=== PATIENT | female | born 2000 | race Caucasian/White ===

== ENCOUNTER 2022-04-06 17:58 | Inpatient (IN) ==
--- NOTE | 2022-04-06 18:22 | Emergency Department Note ---
Impression & Plan Suicidal ideation, Mood disorder, Paranoid ED Provider Note NAME: LYUBOV STEWART AGE: 22 SEX: F : 2000 ARRIVES VIA: Law Enforcement Transport INFORMANT: Patient, Police ED PROVIDER(S): Miller Jaime DO CHIEF COMPLAINT: Mental health evaluation HPI: Patient is a 22-year-old female who is a [employer] student who presents to the ER brought in by police. They note that she has been found to various places including [employer] and she has going through various different things including trash. They note that she is very paranoid. She was brought to [facility] and the police took her home. They later found her 2 hours later walking through the [place] and she had no idea where she was or why she was there. She was knocking on doors looking for the [employer] per their report as well. She denies any suicidal or homicidal ideations. No auditory or visual hallucinations. She notes that where things have been happening to her and she shows me a picture in the trash and asked me to explain this the note. She also notes that while walking through one of the buildings people were changing the wall as well as the wallpaper trying to confuse her. PAST MEDICAL HISTORY:See Below PAST SURGICAL HISTORY:See Below FAMILY HISTORY:See Below SOCIAL HISTORY:See Below HOME MEDICATIONS:See Below ALLERGIES:See Below VITALS:See Below PHYSICAL EXAMINATION: GENERAL: Sitting up in bed, alert, well appearing, well nourished, no distress, non-toxic EYE EXAM: normal conjunctiva. OROPHARYNX: no exudate, no erythema, lips, buccal mucosa, and tongue normal and mucous membranes are moist NECK: supple, no nuchal rigidity, no adenopathy, non-tender LUNGS: Clear to auscultation. Normal chest wall mechanics HEART: no murmurs, S1 normal and S2 normal ABDOMEN: abdomen soft, non-tender, normo-active bowel sounds, no masses, no rebound or guarding. BACK: Back is symmetrical on inspection and there is no deformity, no midline tenderness, no CVA tenderness. SKIN: no rashes and no bruising UPPER EXTREMITIES: upper extremities are grossly normal. LOWER EXTREMITIES: No pitting edema. NEURO EXAM: Normal sensorium, cranial nerves II-XII grossly intact, normal speech, no gross weakness of arms, no gross weakness of legs. PSYCH: Patient denies any suicidal or homicidal ideations. Appears very anxious and is clearly paranoid. MEDICAL DECISION MAKING: Patient is a 22-year-old female brought in by police on a 302 petition. Patient has been paranoid and delusional and was consequently brought in. Blood work was obtained and showed no significant leukocytosis or anemia. BMP with mild hypokalemia 3.1. T bili slightly elevated at 1.5 patient denies any belly pain. No transaminitis. TSH unremarkable. UA was contaminated. No urinary symptoms and will not treat. was negative. Tox was positive for marijuana. COVID-negative. Alcohol negative. Patient expressed to Lynn that she is having suicidal ideations and she is very impulsive. She does not have a plan but notes that she would her self without having a clear plan as she is spontaneous. She has had suicide attempt previously. She is clearly paranoid when she was walking through the [place] during the freezing rain storm and did not know where she was and what she was doing there. She is exploring various different sites and she is not clear of what she is looking for but knows that she has to go to various different places. She has no other complaints at this time. Through 2 was signed if she do not want to stay. Do favor she is a danger to herself. She was seen by 3 S. admit for further work-up OBSERVATION:The patient was placed in observation status at 1800. Medical clearance, psychiatric evaluation and placement. During the time in observation, the patient was frequently reassessed and received close monitoring. On Final reassessment the patient labs were stable and the patient will be disposition at this time. A total observation time of 7 hours and patient was admitted to 3 S. Triage Nursing notes reviewed. Limited review of prior medical records performed Vital Signs: reviewed and remarkable for no significant abnormalities Differential diagnosis: Mood disorder, infection, hypoglycemia, electrolyte abnormalities, cardiac sources, intracerebral event, toxicologic, trauma, neurologic, as well as other pathologies. ER treatment provided: See below Diagnostics interpreted by me include EKG and cardiac monitoring as listed below: -Laboratory studies:Interpreted by me as stated above in MDM and shown below. Imaging studies: Xrays: As interpreted by me:none CTs show: none Consultation(s): As described in MDM Procedures:none Critical Care: None Past Med/Surg History Medical History (Updated 04/07/22 @ 00:47 by Miller Jaime DO) No significant past medical history Surgical History No history of previous surgery Social History Smoking Status: Former smoker Tobacco Type: E-cigarettes / Vaping Preferred Language: Pashto Feels Safe at Home: Hesitant to Answer Gender Identity: Female Allergies Allergies Allergy/AdvReac Type Severity Reaction Status Date / Time No Known Allergies Allergy Verified 12/19/20 15:00 Home Meds Home Medications Medication Instructions Recorded Confirmed escitalopram oxalate 10 mg tablet 10 mg PO DAILY 12/19/20 12/19/20 Results & Data (ED) Vital Signs Vital Signs - 24 hr 04/06/22 18:42 04/06/22 19:40 Temperature 37.0 C Temperature Source Oral Pulse Rate [Left Finger] 82 Respiratory Rate 18 Respiratory Depth Normal Blood Pressure [Left Arm] 99/76 L Blood Pressure Mean [Left Arm] 83 Pulse Oximetry 98 Oxygen Delivery Method Room Air Sepsis Recent Fever Within 48 Hours No Sepsis New/Unexplained Change in Mental Status N/A Sepsis Action Taken by Nursing No Action Required Laboratory Data 04/06/22 19:00 04/06/22 19:00 Lab Results 04/06/22 04/06/22 04/06/22 Range/Units 19:00 19:00 19:00 WBC 5.75 (4.8-10.8) K/ul RBC 4.72 (3.93-5.22) M/uL Hgb 14.8 (12.0-16.0) g/dl Hct 41.9 (34.1-44.9) % MCV 88.8 (80.0-100.0) fL MCH 31.4 (25.0-34.0) pg MCHC 35.3 (32.0-36.0) g/dL RDW Std Deviation 38.5 (36.4-46.3) fL RDW Coeff of Apollo 11.9 (11.5-14.5) % Plt Count 302 (130-400) K/uL MPV 9.3 L (9.4-12.3) fL Immature Gran % (Auto) 0.2 % Neut % (Auto) 53.0 % Lymph % (Auto) 36.2 % [place] % (Auto) 9.2 % Eos % (Auto) 0.7 % Baso % (Auto) 0.7 % Neut # (Auto) 3.05 (1.4-6.5) K/uL Lymph # (Auto) 2.08 (1.2-3.4) K/uL [place] # (Auto) 0.53 (0.24-0.82) K/uL Eos # (Auto) 0.04 (0-0.50) K/uL Baso # (Auto) 0.04 (0-0.2) K/uL Immature Gran # (Auto) 0.01 (0.00-0.02) K/uL Sodium 139 (136-145) mmol/L Potassium 3.1 L (3.5-5.1) mmol/L Chloride 101 (98-107) mmol/L Carbon Dioxide 26 (21-32) mmol/L Anion Gap 12 H (3-11) BUN 16 (6-23) mg/dl Creatinine 0.82 (0.6-1.2) mg/dl Est Cr Clr Drug Dosing Not Reportable Est GFR ( Amer) 116.1 ml/min Est GFR (Non-Af Amer) 100.2 ml/min BUN/Creatinine Ratio 19.5 (10-20) Glucose 89 (70-99(Fasting)) mg/dl Calcium 10.6 H (8.5-10.1) mg/dl Total Bilirubin 1.5 H (0.2-1.0) mg/dl AST 48 H (13-39) U/L ALT 24 (7-52) U/L Alkaline Phosphatase 53 (34-104) U/L Total Protein 8.8 H (6.0-8.3) gm/dl Albumin 5.6 H (3.4-5.0) gm/dl Globulin 3.2 (2.5-4.0) gm/dl Albumin/Globulin Ratio 1.8 (0.9-2) TSH 0.503 (0.300-4.500) uIu/ml Urine Color Urine Appearance (Clear) Urine pH (4.5-7.5) Ur Specific [place] (1.000-1.030) Urine Protein (Negative) Urine Glucose (UA) (Negative) Urine Ketones (Negative) Urine Blood (Negative) Urine Nitrite (Negative) Urine Bilirubin (Negative) Urine Urobilinogen (Negative) Ur Leukocyte Esterase (Negative) Urine WBC (Auto) (0-5) /hpf Urine RBC (Auto) (0-4) /hpf U Hyaline Cast (Auto) (0-5) /lpf U Epithel Cells (Auto) (0-5) /lpf Urine Bacteria (Auto) (Negative) Urine Crystals Calcium Oxalate Crystal (None Prsent) Urine Test (Negative) Urine Opiates Screen (Neg) Ur Methadone, Qual (Neg) Urine Barbiturates (Neg) Ur Phencyclidine (PCP) (Neg) U Amphetamin/Meth Scrn (Neg) MDMA (Ecstasy) Screen (Neg) U Benzodiazepines Scrn (Neg) Ur Cocaine Metabolite (Neg) U Marijuana (THC) Screen (Neg) Ethyl Alcohol mg/dL (<10.0) mg/dl SARS-CoV-2, RNA, NAAT (NEGATIVE) 04/06/22 04/06/22 04/06/22 Range/Units 19:00 19:00 19:00 WBC (4.8-10.8) K/ul RBC (3.93-5.22) M/uL Hgb (12.0-16.0) g/dl Hct (34.1-44.9) % MCV (80.0-100.0) fL MCH (25.0-34.0) pg MCHC (32.0-36.0) g/dL RDW Std Deviation (36.4-46.3) fL RDW Coeff of Apollo (11.5-14.5) % Plt Count (130-400) K/uL MPV (9.4-12.3) fL Immature Gran % (Auto) % Neut % (Auto) % Lymph % (Auto) % [place] % (Auto) % Eos % (Auto) % Baso % (Auto) % Neut # (Auto) (1.4-6.5) K/uL Lymph # (Auto) (1.2-3.4) K/uL [place] # (Auto) (0.24-0.82) K/uL Eos # (Auto) (0-0.50) K/uL Baso # (Auto) (0-0.2) K/uL Immature Gran # (Auto) (0.00-0.02) K/uL Sodium (136-145) mmol/L Potassium (3.5-5.1) mmol/L Chloride (98-107) mmol/L Carbon Dioxide (21-32) mmol/L Anion Gap (3-11) BUN (6-23) mg/dl Creatinine (0.6-1.2) mg/dl Est Cr Clr Drug Dosing Est GFR ( Amer) ml/min Est GFR (Non-Af Amer) ml/min BUN/Creatinine Ratio (10-20) Glucose (70-99(Fasting)) mg/dl Calcium (8.5-10.1) mg/dl Total Bilirubin (0.2-1.0) mg/dl AST (13-39) U/L ALT (7-52) U/L Alkaline Phosphatase (34-104) U/L Total Protein (6.0-8.3) gm/dl Albumin (3.4-5.0) gm/dl Globulin (2.5-4.0) gm/dl Albumin/Globulin Ratio (0.9-2) TSH (0.300-4.500) uIu/ml Urine Color Dark Yellow Urine Appearance Cloudy A (Clear) Urine pH 6.0 (4.5-7.5) Ur Specific [place] 1.038 H (1.000-1.030) Urine Protein 1+ H (Negative) Urine Glucose (UA) Negative (Negative) Urine Ketones 2+ H (Negative) Urine Blood Negative (Negative) Urine Nitrite Negative (Negative) Urine Bilirubin Negative (Negative) Urine Urobilinogen Negative (Negative) Ur Leukocyte Esterase Negative (Negative) Urine WBC (Auto) 5-10 H (0-5) /hpf Urine RBC (Auto) 0-4 (0-4) /hpf U Hyaline Cast (Auto) 10-30 H (0-5) /lpf U Epithel Cells (Auto) >30 H (0-5) /lpf Urine Bacteria (Auto) 2+ H (Negative) Urine Crystals Not Reportable Calcium Oxalate Crystal Present A (None Prsent) Urine Test Negative (Negative) Urine Opiates Screen (Neg) Ur Methadone, Qual (Neg) Urine Barbiturates (Neg) Ur Phencyclidine (PCP) (Neg) U Amphetamin/Meth Scrn (Neg) MDMA (Ecstasy) Screen (Neg) U Benzodiazepines Scrn (Neg) Ur Cocaine Metabolite (Neg) U Marijuana (THC) Screen (Neg) Ethyl Alcohol mg/dL < 10.0 (<10.0) mg/dl SARS-CoV-2, RNA, NAAT (NEGATIVE) 04/06/22 04/06/22 Range/Units 19:19 Unknown WBC (4.8-10.8) K/ul RBC (3.93-5.22) M/uL Hgb (12.0-16.0) g/dl Hct (34.1-44.9) % MCV (80.0-100.0) fL MCH (25.0-34.0) pg MCHC (32.0-36.0) g/dL RDW Std Deviation (36.4-46.3) fL RDW Coeff of Apollo (11.5-14.5) % Plt Count (130-400) K/uL MPV (9.4-12.3) fL Immature Gran % (Auto) % Neut % (Auto) % Lymph % (Auto) % [place] % (Auto) % Eos % (Auto) % Baso % (Auto) % Neut # (Auto) (1.4-6.5) K/uL Lymph # (Auto) (1.2-3.4) K/uL [place] # (Auto) (0.24-0.82) K/uL Eos # (Auto) (0-0.50) K/uL Baso # (Auto) (0-0.2) K/uL Immature Gran # (Auto) (0.00-0.02) K/uL Sodium (136-145) mmol/L Potassium (3.5-5.1) mmol/L Chloride (98-107) mmol/L Carbon Dioxide (21-32) mmol/L Anion Gap (3-11) BUN (6-23) mg/dl Creatinine (0.6-1.2) mg/dl Est Cr Clr Drug Dosing Est GFR ( Amer) ml/min Est GFR (Non-Af Amer) ml/min BUN/Creatinine Ratio (10-20) Glucose (70-99(Fasting)) mg/dl Calcium (8.5-10.1) mg/dl Total Bilirubin (0.2-1.0) mg/dl AST (13-39) U/L ALT (7-52) U/L Alkaline Phosphatase (34-104) U/L Total Protein (6.0-8.3) gm/dl Albumin (3.4-5.0) gm/dl Globulin (2.5-4.0) gm/dl Albumin/Globulin Ratio (0.9-2) TSH (0.300-4.500) uIu/ml Urine Color Urine Appearance (Clear) Urine pH (4.5-7.5) Ur Specific [place] (1.000-1.030) Urine Protein (Negative) Urine Glucose (UA) (Negative) Urine Ketones (Negative) Urine Blood (Negative) Urine Nitrite (Negative) Urine Bilirubin (Negative) Urine Urobilinogen (Negative) Ur Leukocyte Esterase (Negative) Urine WBC (Auto) (0-5) /hpf Urine RBC (Auto) (0-4) /hpf U Hyaline Cast (Auto) (0-5) /lpf U Epithel Cells (Auto) (0-5) /lpf Urine Bacteria (Auto) (Negative) Urine Crystals Calcium Oxalate Crystal (None Prsent) Urine Test (Negative) Urine Opiates Screen Neg (Neg) Ur Methadone, Qual Neg (Neg) Urine Barbiturates Neg (Neg) Ur Phencyclidine (PCP) Neg (Neg) U Amphetamin/Meth Scrn Neg (Neg) MDMA (Ecstasy) Screen Neg (Neg) U Benzodiazepines Scrn Neg (Neg) Ur Cocaine Metabolite Neg (Neg) U Marijuana (THC) Screen Pos H (Neg) Ethyl Alcohol mg/dL (<10.0) mg/dl SARS-CoV-2, RNA, NAAT NEGATIVE (NEGATIVE) Discharge Plan Visit Data Chief Complaint: Mental Health Evaluation Stated Complaint: MENTAL HEALTH EVAL ED Provider: Miller Jaime Discharge Problem: Suicidal ideation, Mood disorder, Paranoid Forms Stand Alone Forms: My [facility], Suicide Prevention Resources Prescriptions Prescriptions: No Action escitalopram oxalate 10 mg tablet 10 mg PO DAILY Referrals Referrals: PCP,NO [Primary Care Provider] -
[2022-04-06 19:16] LABS: Basophils # (auto) 0.04 K/uL (0-0.2); Basophils % (auto) 0.7 %; Eosinophils # (auto) 0.04 K/uL (0-0.50); Eosinophils % (auto) 0.7 %; Hematocrit (blood only) 41.9 % (34.1-44.9); Hemoglobin 14.8 g/dl (12.0-16.0); Immature Granulocytes # (auto) 0.01 K/uL (0.00-0.02); Immature Granulocytes % (auto) 0.2 %; Lymphocytes # (auto) 2.08 K/uL (1.2-3.4); Lymphocytes % (auto) 36.2 %; Mean Corpuscular Hemoglobin 31.4 pg (25.0-34.0); Mean Corpuscular Hgb Conc 35.3 g/dL (32.0-36.0); Mean Corpuscular Volume 88.8 fL (80.0-100.0); Mean Platelet Volume 9.3 fL (9.4-12.3); Monocytes # (auto) 0.53 K/uL (0.24-0.82); Monocytes % (auto) 9.2 %; Neutrophils # (auto) 3.05 K/uL (1.4-6.5); Platelet Count 302 K/uL (130-400); RDW Coefficient of Variation 11.9 % (11.5-14.5); RDW Standard Deviation 38.5 fL (36.4-46.3); Red Blood Count 4.72 M/uL (3.93-5.22); White Blood Count 5.75 K/ul (4.8-10.8)
[2022-04-06 19:19] LABS: Appearance Urine Cloudy (Clear); Bacteria Urine Automated 2+ (Negative); Bilirubin Urine Negative (Negative); Blood Urine Negative (Negative); Color Urine Dark Yellow; Epithelial Cell Urine Auto >30 /lpf (0-5); Glucose Urine UA Negative (Negative); Ketones Urine 2+ (Negative); Leukocyte Esterase Urine Negative (Negative); Nitrite Urine Negative (Negative); Protein Urine 1+ (Negative); RBC Urine Automated 0-4 /hpf (0-4); Specific Gravity Urine 1.038 (1.000-1.030); Urobilinogen Urine Negative (Negative)
[2022-04-06 19:32] LABS: Calcium Oxalate Crystals Urine Present (None Prsent)
[2022-04-06 19:35] LABS: Alanine Aminotransferase 24 U/L (7-52); Albumin Globulin Ratio 1.8 (0.9-2); Albumin Level 5.6 gm/dl (3.4-5.0); Alkaline Phosphatase 53 U/L (34-104); Anion Gap 12 (3-11); Aspartate Aminotransferase 48 U/L (13-39); BUN Creatinine Ratio 19.5 (10-20); Bilirubin,Total 1.5 mg/dl (0.2-1.0); Blood Urea Nitrogen 16 mg/dl (6-23); Calcium 10.6 mg/dl (8.5-10.1); Carbon Dioxide 26 mmol/L (21-32); Chloride 101 mmol/L (98-107); Est GFR (African American) 116.1 ml/min; Est GFR (Non-African American) 100.2 ml/min; Globulin 3.2 gm/dl (2.5-4.0); Glucose 89 mg/dl (70-99(Fasting)); Potassium 3.1 mmol/L (3.5-5.1); Sodium 139 mmol/L (136-145); Total Protein 8.8 gm/dl (6.0-8.3)
[2022-04-06 19:46] LABS: Amphetamines+Metham, Urine Neg (Neg); Barbiturates, Urine Neg (Neg); Benzodiazepine, Urine Neg (Neg); Cocaine, Urine Neg (Neg); MDMA (Ecstacy), Urine Neg (Neg); Methadone, Urine Neg (Neg); Opiate, Urine Neg (Neg); Phencyclidine, Urine Neg (Neg)
[2022-04-06 21:49] LABS: Pregnancy Test, Urine Negative (Negative)
[2022-04-06] MEDS ORDERED: OLANZapine 5 MG TABLET PO PRN (23:59)
[2022-04-07] MEDS ORDERED: ACETAMINOPHEN 325 MG TAB PO PRN (00:06)
[2022-04-07] MEDS ORDERED: BISMUTH SUBSALICYLATE LIQD 236 ML PO PRN (00:06)
[2022-04-07] MEDS ORDERED: MAGNESIUM HYDROXIDE SUSP 30 ML UDC PO PRN (00:06)
[2022-04-07] MEDS ORDERED: ALUMINUM/MAGNESIUM SUSP 30 ML UDC PO PRN (00:06)
[2022-04-07] MEDS ORDERED: hydrOXYzine HCl 25 MG TAB PO PRN ×2 (00:06)
[2022-04-07] MEDS ORDERED: SODIUM CHLORIDE 0.65% NA SOLN 45 ML (OCEAN) PRN ×2 (00:06→00:50)
[2022-04-07] MEDS ORDERED: OLANZapine ZYDIS 5 MG ORALLY DIS. TAB PO PRN (01:28)
[2022-04-07] MEDS ORDERED: LORazepam 1 MG TAB PO PRN (01:30)
[2022-04-07] MEDS ORDERED: OLANZapine 10 MG/2.1 ML SDV IM PRN (10:32)
--- NOTE | 2022-04-07 17:09 | History & Physical ---
Date of Service April 07, 2022 Impression / Recommendations Impression 22 yo female with unspecified psychotic disorder, differential includes substance induced, acute jennifer, or primary thought disorder. Father reportedly had an isolated episode of psychosis in his 20s. Given sleep pattern, presentation, rapid onset, baseline functioning without negative prodrome, no known recent substance abuse (though tox + MJ) suspect bipolar I disorder. (1) Psychotic disorder: Plan The patient was admitted to the [facility] ([facility] mental [facility] unit) on q15 min checks (behavioral with suicide precautions) for safety. The patient w ill participate in group, recreational, and milieu therapies and will be offered additional individual and family sessions as clinically appropriate. She is currently refusing all programming. She did eat breakfast then refuse lunch. Risks/benefits/alternatives reviewed re: Seroquel for mood stabilization as she preferred over Zyprexa (though the latter will be available IM if unable to redirect). Will replete K+, UC no growth on day 1 and patient denied dysuria. 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 Chief Complaint "I don't need to be here, my rights are being violated." History of Present Illness The patient is rather guarded in relating her history, sometime since return to campus she's felt "something was off" and that she was being compelled to follow signs that she felt had significance for her. She asked me to relate the timeline of events yesterday, either to avoid giving information that could be used against her or due to poor memory/disorganization. She apparently had a contact with a crisis service and was found within 2 hours wandering and attempting to break into a woman's home who called police. She mentioned that a sign on a construction building led her to believe that the FBI may be involved but could not elaborate. She repeatedly stated she was leaving the hospital today and was irritable upon redirection. She did indicate that she feels safe at her apartment but that some of her neighbors have been acting strangely and that "this is all external, I am fine. I need to go." She denies hallucinations. She stated that she was trying to remove the molding from the floor in the bathroom of the ED last pm as she was trying to escape. She mentioned that one of the staff must be actors as she was wheeled through the hospital and didn't see a single other patient. The patient's was rather nonspecific regarding her MJ use stating that it couldn't be a problem as she was only using daily at bedtime until break (which would be recent). Denied other substance use other than social alcohol. Of note she had been seen in ED twice within past year for fall and odd reaction to Lexapro. She may have been prescribed Buspar and Vistaril via telepsychiatry ([place] provider) but only used the latter rarely for sleep. She did admit to poor sleep and has only slept 1 hour since arriving to the unit. Again stated "this is all external, I'd rather deal without meds" but did agree to Vistaril and Seroquel, then requested prn and then refused. She is frequently at the nurses station (somewhat restless), hyperverbal. A concerned student called to the unit and reported to nursing that her apartment is "a shambles" and she has torn open outlets exposing wires, ripped off the dry wall and has manuals all over the floor. She almost took a hammer to a sliding glass door and tried to get a cleaning person's badge. See also 302 warrant info: "On 04/05/22 officers were dispatched for a confused female at the [facility] who was not staying there. Officers made contact with Kayla Meraz who said she was looking for her purse. Surveillance footage determined she walked all over the facility and pulled computer wires out of multiple units. On 04/06/22, Kayla was found by officers wandering in an active construction area. She did not have an answer on why she was there or what she was doing. Kayla was taken to [facility] and released. A couple hours later, Kayla walked over a mile in the cold rain without proper attire on. She knocked on a person's house asking for help. She did not know where she was or how she had gotten there. Kayla advised officers she had not eaten all day. Her day's events were all over the place and out of order. When asked why she walked through the baez, she said she was possibly looking for the FBI. Also she saw a road sign that said come this way. Due to these events, this officer believes Kayla to be a danger to herself or others." Past Psychiatric History Current Psychiatric Diagnosis: Depression, Anxiety Outpatient Services: none Previous Psych Admissions: none Do You Have Access To A Gun?: No History of Previous Suicide Attempt: Yes Describe Attempts in the Past: reported trying to cut her neck while intoxicated in Nov 2021 Past Medication Trials: 1 dose Lexapro, unclear if took Buspar, Vistaril Allergies Allergy/AdvReac Type Severity Reaction Status Date / Time No Known Allergies Allergy Verified 12/19/20 15:00 Home Medications Medication Instructions Recorded Confirmed Type escitalopram oxalate 10 mg tablet 10 mg PO DAILY 12/19/20 12/19/20 History Family History Family History of: Doesn't Know Alcohol History Hx of Alcohol Use Over the Past 12 Months: Yes (Unable to give details) Smoking Use Have You Smoked or Used Tobacco Products in the Last 30 Days: No tobacco type: e-cigarettes Smoking Status: Former smoker Smoking packs per day: 0 Substance History Hx of Prescription Med Misuse Over the Past 12 Months: No Hx of Over the Counter Med Misuse Over the Past 12 Months: No Hx of Inhalent Misuse Over the Past 12 Months: No Hx of Organic Substance Use Over the Past 12 Months: Yes (MJ 1 month ago) Hx of Illegal Substances/Street Drug Use Over Past 12 Months: No Problems as a Result of Past Substance Use: None Identified Personal History Living Arrangements: Apartment 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) Employment Status: Student Marital Status: Single Number Of Children: 0 Beliefs That Will Affect Care: None Current Legal Problems: No Hx Legal Problems: No Hx Traumatic Life Events: Yes (per patient being hospitalized now) Patient History Medical History (Updated 04/07/22 @ 17:28 by Marguerite Yun MD) No significant past medical history Surgical History No history of previous surgery Social History Smoking Status: Former smoker Tobacco Type: E-cigarettes / Vaping Preferred Language: Azeri Communication Ability: Effective Greaser Helper Required: No Beliefs That Will Affect Care: None Feels Safe at Home: Hesitant to Answer Gender Identity: Female Assistive Devices: None Review of Systems Review of Systems: All systems reviewed & are unremarkable except as noted in HPI & below Physical Exam Psychiatric: Orientation: alert and + guarded; + uncooperative Apperance: appropriately dressed and appropriately groomed Eye Contact: + fair eye contact Motor Behavior: no abnormal motor movements Speech: no pressured speech and + abnormal rate/rhythm/volume of speech (hyperverbal at times) Affect: + labile affect (irritable to laughing inappropriately) Mood: + irritable mood Thought Process: + tangential thought process and + perseveration Thought Content: + paranoid, + delusions and + ideas of reference Suicidal Thoughts: denies suicidal thoughts Homicidal Thoughts: denies homicidal thoughts Hallucinations: no auditory hallucinations and no v isual hallucinations Cognition: attention grossly intact and language grossly intact Estimated Intelligence: consistent with education level Insight: + impaired insight Judgement: + impaired judgement Vital Signs (Past 24 Hours): Last Vital Signs Temp 36.4 C 04/07/22 06:00 Pulse 62 04/07/22 06:00 Resp 18 04/07/22 06:00 BP 122/77 04/07/22 06:00 Pulse Ox 93 04/07/22 06:00 O2 Del Method 04/07/22 06:00 Exam Statement: A physical exam was performed in the ED by Dr. Jaime for the purposes of medical clearance. I accept that physical as correct and adequate for the purposes of the inpatient physical exam. Results & Data ([facility]) Laboratory Results Laboratory Results - last 24 hr 04/06/22 04/06/22 04/06/22 19:00 19:00 19:00 WBC 5.75 RBC 4.72 Hgb 14.8 Hct 41.9 MCV 88.8 MCH 31.4 MCHC 35.3 RDW Std Deviation 38.5 RDW Coeff of Apollo 11.9 Plt Count 302 MPV 9.3 L Immature Gran % (Auto) 0.2 Neut % (Auto) 53.0 Lymph % (Auto) 36.2 Richardson % (Auto) 9.2 Eos % (Auto) 0.7 Baso % (Auto) 0.7 Neut # (Auto) 3.05 Lymph # (Auto) 2.08 Richardson # (Auto) 0.53 Eos # (Auto) 0.04 Baso # (Auto) 0.04 Immature Gran # (Auto) 0.01 Sodium 139 Potassium 3.1 L Chloride 101 Carbon Dioxide 26 Anion Gap 12 H BUN 16 Creatinine 0.82 Est Cr Clr Drug Dosing Not Reportable Est GFR ( Amer) 116.1 Est GFR (Non-Af Amer) 100.2 BUN/Creatinine Ratio 19.5 Glucose 89 Calcium 10.6 H Total Bilirubin 1.5 H AST 48 H ALT 24 Alkaline Phosphatase 53 Total Protein 8.8 H Albumin 5.6 H Globulin 3.2 Albumin/Globulin Ratio 1.8 TSH 0.503 Urine Color Urine Appearance Urine pH Ur Specific [place] Urine Protein Urine Glucose (UA) Urine Ketones Urine Blood Urine Nitrite Urine Bilirubin Urine Urobilinogen Ur Leukocyte Esterase Urine WBC (Auto) Urine RBC (Auto) U Hyaline Cast (Auto) U Epithel Cells (Auto) Urine Bacteria (Auto) Urine Crystals Calcium Oxalate Crystal Urine Test Urine Opiates Screen Ur Methadone, Qual Urine Barbiturates Ur Phencyclidine (PCP) U Amphetamin/Meth Scrn MDMA (Ecstasy) Screen U Benzodiazepines Scrn Ur Cocaine Metabolite U Marijuana (THC) Screen U Marijuana THC Carboxy Drug Screen Comment Ethyl Alcohol mg/dL SARS-CoV-2, RNA, NAAT 04/06/22 04/06/22 04/06/22 19:00 19:00 19:00 WBC RBC Hgb Hct MCV MCH MCHC RDW Std Deviation RDW Coeff of Apollo Plt Count MPV Immature Gran % (Auto) Neut % (Auto) Lymph % (Auto) Richardson % (Auto) Eos % (Auto) Baso % (Auto) Neut # (Auto) Lymph # (Auto) Richardson # (Auto) Eos # (Auto) Baso # (Auto) Immature Gran # (Auto) Sodium Potassium Chloride Carbon Dioxide Anion Gap BUN Creatinine Est Cr Clr Drug Dosing Est GFR ( Amer) Est GFR (Non-Af Amer) BUN/Creatinine Ratio Glucose Calcium Total Bilirubin AST ALT Alkaline Phosphatase Total Protein Albumin Globulin Albumin/Globulin Ratio TSH Urine Color Dark Yellow Urine Appearance Cloudy A Urine pH 6.0 Ur Specific [place] 1.038 H Urine Protein 1+ H Urine Glucose (UA) Negative Urine Ketones 2+ H Urine Blood Negative Urine Nitrite Negative Urine Bilirubin Negative Urine Urobilinogen Negative Ur Leukocyte Esterase Negative Urine WBC (Auto) 5-10 H Urine RBC (Auto) 0-4 U Hyaline Cast (Auto) 10-30 H U Epithel Cells (Auto) >30 H Urine Bacteria (Auto) 2+ H Urine Crystals Not Reportable Calcium Oxalate Crystal Present A Urine Test Negative Urine Opiates Screen Ur Methadone, Qual Urine Barbiturates Ur Phencyclidine (PCP) U Amphetamin/Meth Scrn MDMA (Ecstasy) Screen U Benzodiazepines Scrn Ur Cocaine Metabolite U Marijuana (THC) Screen U Marijuana THC Carboxy Drug Screen Comment Ethyl Alcohol mg/dL < 10.0 SARS-CoV-2, RNA, NAAT 04/06/22 04/06/22 04/06/22 19:19 Unknown Unknown WBC RBC Hgb Hct MCV MCH MCHC RDW Std Deviation RDW Coeff of Apollo Plt Count MPV Immature Gran % (Auto) Neut % (Auto) Lymph % (Auto) Richardson % (Auto) Eos % (Auto) Baso % (Auto) Neut # (Auto) Lymph # (Auto) Richardson # (Auto) Eos # (Auto) Baso # (Auto) Immature Gran # (Auto) Sodium Potassium Chloride Carbon Dioxide Anion Gap BUN Creatinine Est Cr Clr Drug Dosing Est GFR ( Amer) Est GFR (Non-Af Amer) BUN/Creatinine Ratio Glucose Calcium Total Bilirubin AST ALT Alkaline Phosphatase Total Protein Albumin Globulin Albumin/Globulin Ratio TSH Urine Color Urine Appearance Urine pH Ur Specific [place] Urine Protein Urine Glucose (UA) Urine Ketones Urine Blood Urine Nitrite Urine Bilirubin Urine Urobilinogen Ur Leukocyte Esterase Urine WBC (Auto) Urine RBC (Auto) U Hyaline Cast (Auto) U Epithel Cells (Auto) Urine Bacteria (Auto) Urine Crystals Calcium Oxalate Crystal Urine Test Urine Opiates Screen Neg Ur Methadone, Qual Neg Urine Barbiturates Neg Ur Phencyclidine (PCP) Neg U Amphetamin/Meth Scrn Neg MDMA (Ecstasy) Screen Neg U Benzodiazepines Scrn Neg Ur Cocaine Metabolite Neg U Marijuana (THC) Screen Pos H U Marijuana THC Carboxy Pending Drug Screen Comment Pending Ethyl Alcohol mg/dL SARS-CoV-2, RNA, NAAT NEGATIVE Current Inpatient Medications Current Inpatient Medications: Current Inpatient Medications Acetaminophen (Acetaminophen 325 Mg Tab) 650 mg PO Q4H PRN PRN Reason: Headache or Minor Fever Stop: 05/07/22 00:05 Al Hydrox/Mg Hydrox/Simethicone (Aluminum/Magnesium Susp 30 Ml Udc) 30 ml PO Q4H PRN PRN Reason: GI Upset Stop: 05/07/22 00:05 Bismuth Subsalicylate (Bismuth Subsalicylate Liqd 236 Ml) 15 ml PO PRN PRN PRN Reason: Loose Stool Stop: 05/07/22 00:05 Hydroxyzine HCl (Hydroxyzine Hcl 25 Mg Tab) 50 mg PO HSZ PRN PRN Reason: Insomnia Stop: 05/07/22 00:05 Lorazepam (Lorazepam 1 Mg Tab) 1 mg PO Q6 PRN PRN Reason: Anxiety Stop: 05/07/22 01:29 Magnesium Hydroxide (Magnesium Hydroxide Susp 30 Ml Udc) 30 ml PO DAILY PRN PRN Reason: Constipation Stop: 05/07/22 00:05 Olanzapine (Olanzapine 10 Mg/2.1 Ml Sdv) 10 mg IM Q6 PRN PRN Reason: Agitation Stop: 05/07/22 11:59 Quetiapine Fumarate (Quetiapine Fumarate 25 Mg Tablet) 25 mg PO Q4 PRN PRN Reason: Anxiety/Agitation Stop: 05/07/22 11:59 Quetiapine Fumarate (Quetiapine Fumarate 25 Mg Tablet) 50 mg PO HS CAROLA Stop: 05/07/22 21:59 Sodium Chloride (Sodium Chloride 0.65% Na Soln 45 Ml ([place])) 1 - 2 sprays NA PRN PRN PRN Reason: Nasal Dryness/Congestion Stop: 05/07/22 00:05
[2022-04-07] MEDS: QUEtiapine FUMARATE 25 MG TABLET PO SCH (22:39)
--- NOTE | 2022-04-08 11:43 | Psychiatric Progress Note ---
Date of Service April 08, 2022 Impression / Recommendations Impression 22 yo female with unspecified psychotic disorder, differential includes substance induced, acute jennifer, or primary thought disorder. Father reportedly had an isolated episode of psychosis in his 20s. Given sleep pattern, presentation, rapid onset, baseline functioning without negative prodrome, suspect bipolar I disorder but today patient alluded to more frequent substance abuse (presumably MJ). (1) Psychotic disorder: Plan 04/08/22: patient is eating and drinking and remains paranoid about medications, will hold on replete K pending repeat labs in favor of compliance with low dose Seroquel. Refusing additional labs at this time. will need to make a determination about requesting extended commitment tomorrow. 04/07/22: The patient was admitted to the [facility] ([facility] mental health unit) on q15 min checks (behavioral with suicide precautions) for safety. The patient will participate in group, recreational, and milieu therapies and will b e offered additional individual and family sessions as clinically appropriate. She is currently refusing all programming. She did eat breakfast then refuse lunch. Risks/benefits/alternatives reviewed re: Seroquel for mood stabilization as she preferred over Zyprexa (though the latter will be available IM if unable to redirect). Will replete K+, UC no growth on day 1 and patient denied dysuria. 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 Chief Complaint "I don't trust you. I'm fine, it won't happen again." Review of Systems Sleep Information Total Hours of Sleep: 4.75 Meal Information Percent Meal Consumed - Breakfast: 75 Percent Meal Consumed - Lunch: 0 Percent Meal Consumed - Dinner: 75 Subjective Subjective Patient was seen & assessed and interval progress reviewed with nursing and social work. Yesterday patient was highly intrussive and making other patients uncomfortable with her perseveration around rights and inability to distinguish their stay from her involuntary status. She did sleep some overnight and in the am was calmer and able to participate in community meeting. Extensive phone conversation with parents and charge nurse this am about patient's condition with education around [place] mental health statute and criteria for ongoing involunt brady stay and even higher criteria for medications over objection. Reviewed not only hospital visitation and COVID policies but that involuntary patients with elopement risk and lability need accommodations around visiting for safety and so as not to exacerbate their condition and patient verbalized understanding. Mother had previously requested to be present to hold hand at [facility] internal medicine hospitalist time and reiterated that this was outside of even our former visitation policy but that a reasonable accommodation would be for allow phone contact to improve trust/encourage. Parents are highly supportive of medication for her psychosis, discussed differential, answered questions about medications and indications for IM. Parents voiced "total trust" in treatment team and expressed concerns about aftercare and med compliance. They voiced concerns re: even possible discharge after 120 hrs. given the damage in her apartment. They have contacted property management and placed work order for repairs which they will pay for. They have notified law school that she is hospitalized. Patient remains paranoid, misinterpreted again that she was being discharged and became defensive around meds during daily rounds. She alluded to recent substance use but would not elaborate. She admitted to taking a hammer to the wall in her apartment to look for recording or listening devices. She was not amenable to take Seroquel at the time of the interaction but did take with staff support during family meeting later in the afternoon. Physical Exam Psychiatric Orientation: alert and + guarded Apperance: appropriately dressed and appropriately groomed Eye Contact: + fair eye contact Motor Behavior: no abnormal motor movements Speech: normal rate/rhythm/volume of speech Affect: + irritable affect Mood: + irritable mood Thought Process: + circumstantial thought process Thought Content: + paranoid and + delusions Suicidal Thoughts: denies suicidal thoughts Homicidal Thoughts: denies homicidal thoughts Hallucinations: no auditory hallucinations and no visual hallucinations Cognition: language grossly intact Estimated Intelligence: consistent with education level Insight: + impaired insight Judgement: + impaired judgement Vital Signs (Past 24 Hours) Last Vital Signs Temp 36.8 C 04/08/22 06:27 Pulse 83 04/08/22 06:27 Resp 16 04/08/22 06:27 BP 119/82 04/08/22 06:27 Pulse Ox 93 04/07/22 06:00 O2 Del Method 04/07/22 06:00 Results & Data ([facility] [[email or web address] Current Inpatient Medications Current Inpatient Medications: Current Inpatient Medications Acetaminophen (Acetaminophen 325 Mg Tab) 650 mg PO Q4H PRN PRN Reason: Headache or Minor Fever Stop: 05/07/22 00:05 Al Hydrox/Mg Hydrox/Simethicone (Aluminum/Magnesium Susp 30 Ml Udc) 30 ml PO Q4H PRN PRN Reason: GI Upset Stop: 05/07/22 00:05 Bismuth Subsalicylate (Bismuth Subsalicylate Liqd 236 Ml) 15 ml PO PRN PRN PRN Reason: Loose Stool Stop: 05/07/22 00:05 Hydroxyzine HCl (Hydroxyzine Hcl 25 Mg Tab) 50 mg PO HSZ PRN PRN Reason: Insomnia Stop: 05/07/22 00:05 Lorazepam (Lorazepam 1 Mg Tab) 1 mg PO Q6 PRN PRN Reason: Anxiety Stop: 05/07/22 01:29 Magnesium Hydroxide (Magnesium Hydroxide Susp 30 Ml Udc) 30 ml PO DAILY PRN PRN Reason: Constipation Stop: 05/07/22 00:05 Olanzapine (Olanzapine 10 Mg/2.1 Ml Sdv) 10 mg IM Q6 PRN PRN Reason: Agitation Stop: 05/07/22 11:59 Quetiapine Fumarate (Quetiapine Fumarate 25 Mg Tablet) 25 mg PO Q4 PRN PRN Reason: Anxiety/Agitation Stop: 05/07/22 11:59 Quetiapine Fumarate (Quetiapine Fumarate 25 Mg Tablet) 50 mg PO HS CAROLA Stop: 05/07/22 21:59 Last Admin: 04/07/22 22:39 Dose: Not Given Sodium Chloride (Sodium Chloride 0.65% Na Soln 45 Ml ([place])) 1 - 2 sprays NA PRN PRN PRN Reason: Nasal Dryness/Congestion Stop: 05/07/22 00:05 Mental Health & Subst Abuse Tx Therapist Name of Therapist: N/A Bar Waiter/Waitress Name of Bar Waiter/Waitress: N/A
[2022-04-08] MEDS: QUEtiapine FUMARATE 25 MG TABLET PO PRN (14:45)
[2022-04-08] MEDS: QUEtiapine FUMARATE 25 MG TABLET PO SCH (22:22)
[2022-04-09 11:32] LABS: Marijuana Quant, GCMS Urine 85 ng/mL (<5)
--- NOTE | 2022-04-09 16:53 | Psychiatric Progress Note ---
Date of Service April 09, 2022 Impression / Recommendations Impression 22 yo female with unspecified psychotic disorder, differential includes substance induced, acute jennifer, or primary thought disorder. Father reportedly had an isolated episode of psychosis in his 20s. Given sleep pattern, presentation, rapid onset, baseline functioning without negative prodrome, and fairly rapid improvement with sleep, continue to suspect bipolar I disorder. (1) Psychotic disorder: Plan 04/09/22: slept most of the day and was able to participate in a reasonable conversation about current and future plans. In my opinion she does not at this time exhibit behaviors or thought patterns that would meet criteria for extending the commitment. Will continue trial of low-dose quetiapine. 04/08/22: patient is eating and drinking and remains paranoid about medications, will hold on replete K pending repeat labs in favor of compliance with low dose Seroquel. Refusing additional labs at this time. will need to make a determination about requesting extended commitment tomorrow. 04/07/22: The patient was admitted to the [facility] ([facility] mental health unit) on q15 min checks (behavioral with suicide precautions) for safety. The patient will participate in group, recreational, and milieu therapies and will be offered additional individual and family sessions as clinically appropriate. She is currently refusing all programming. She did eat breakfast then refuse lunch. Risks/benefits/alternatives reviewed re: Seroquel for mood stabilization as she preferred over Zyprexa (though the latter will be available IM if unable to redirect). Will replete K+, UC no growth on day 1 and patient denied dysuria. 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 Chief Complaint "[]". Review of Systems Sleep Information Sleep Comments: Slept much of the day Meal Information Percent Meal Consumed - Breakfast: 75 Percent Meal Consumed - Lunch: 100 Percent Meal Consumed - Dinner: 100 Medication Trials Got quetiapine 25 mg yesterday afternoon and 50 mg at bedtime Subjective Subjective Patient was seen & assessed and interval progress reviewed with treatment team Physical Exam Psychiatric Orientation: + guarded Drowsy and slow to wake. Somewhat guarded but more cooperative. Apperance: appropriately dressed and appropriately groomed Eye Contact: + fair eye contact Motor Behavior: no abnormal motor movements Speech: normal rate/rhythm/volume of speech; no pressured speech Affect: + labile affect (wth some tearfulness); no irritable affect Mood: + anxious mood and + irritable mood less circumstantial and tangential, more goal-oriented. Thought Content: + paranoid and + delusions Alludes to the possibility that "the government" may have previously been monitoring her, but rapidly moves on to other topics Suicidal Thoughts: denies suicidal thoughts Homicidal Thoughts: denies homicidal thoughts Hallucinations: no auditory hallucinations and no visual hallucinations Cognition: attention grossly intact and language grossly intact Estimated Intelligence: consistent with education level Insight: + limited insight more able to voice the possibility that her persecutory beliefs were incorrect and to reflect on how her response to them has adversely affected her life Judgement: + limited judgement more able to make appropriate decisions (such as continuing the quetiapine trial) Vital Signs (Past 24 Hours) Last Vital Signs Temp 36.4 C L 04/09/22 06:34 Pulse 96 H 04/09/22 06:34 Resp 16 04/09/22 06:34 BP 113/81 04/09/22 06:34 Pulse Ox 93 04/07/22 06:00 O2 Del Method 04/07/22 06:00 Results & Data ([facility]) Laboratory Results Laboratory Results - last 24 hr 04/06/22 Unknown U Marijuana THC Carboxy 85 H Drug Screen Comment SEE NOTE Current Inpatient Medications Current Inpatient Medications: Current Inpatient Medications Acetaminophen (Acetaminophen 325 Mg Tab) 650 mg PO Q4H PRN PRN Reason: Headache or Minor Fever Stop: 05/07/22 00:05 Al Hydrox/Mg Hydrox/Simethicone (Aluminum/Magnesium Susp 30 Ml Udc) 30 ml PO Q4H PRN PRN Reason: GI Upset Stop: 05/07/22 00:05 Bismuth Subsalicylate (Bismuth Subsalicylate Liqd 236 Ml) 15 ml PO PRN PRN PRN Reason: Loose Stool Stop: 05/07/22 00:05 Hydroxyzine HCl (Hydroxyzine Hcl 25 Mg Tab) 50 mg PO HSZ PRN PRN Reason: Insomnia Stop: 05/07/22 00:05 Lorazepam (Lorazepam 1 Mg Tab) 1 mg PO Q6 PRN PRN Reason: Anxiety Stop: 05/07/22 01:29 Magnesium Hydroxide (Magnesium Hydroxide Susp 30 Ml Udc) 30 ml PO DAILY PRN PRN Reason: Constipation Stop: 05/07/22 00:05 Olanzapine (Olanzapine 10 Mg/2.1 Ml Sdv) 10 mg IM Q6 PRN PRN Reason: Agitation Stop: 05/07/22 11:59 Quetiapine Fumarate (Quetiapine Fumarate 25 Mg Tablet) 25 mg PO Q4 PRN PRN Reason: Anxiety/Agitation Stop: 05/07/22 11:59 Last Admin: 04/08/22 14:45 Dose: 25 mg Quetiapine Fumarate (Quetiapine Fumarate 25 Mg Tablet) 50 mg PO HS CAROLA Stop: 05/07/22 21:59 Last Admin: 04/08/22 22:22 Dose: 50 mg Sodium Chloride (Sodium Chloride 0.65% Na Soln 45 Ml (Leshara)) 1 - 2 sprays NA PRN PRN PRN Reason: Nasal Dryness/Congestion Stop: 05/07/22 00:05 Mental Health & Subst Abuse Tx Psychiatrist Name of Psychiatrist: Charlotte Amador Psychiatrist's Date Of Appointment With Psychiatric Provider: 04/28/22 Time of Appointment with Psychiatrist: 8:30AM Psychiatric Appointment Comment: [address] [place] [address] Therapist Name of Therapist: N/A Duct Maker Name of Duct Maker: N/A Post Discharge Appointments Primary Care Physician Name Of Family Doctor/PCP: [facility] Primary Care Provider Appointment Comment: [facility] Contact Information Discharge Discharge Address: [address] [place] [address]
[2022-04-09] MEDS: QUEtiapine FUMARATE 25 MG TABLET PO SCH (20:00)
[2022-04-10] MEDS: QUEtiapine FUMARATE 25 MG TABLET PO PRN (07:44)
--- NOTE | 2022-04-10 19:47 | Psychiatric Progress Note ---
Date of Service April 10, 2022 Impression / Recommendations Impression 22 yo female with unspecified psychotic disorder, differential includes substance induced, acute jennifer, or primary thought disorder. Showing gradual but consistent improvement, most likely attributable to use of quetiapine. 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 More interest in treatment. (1) Psychotic disorder: Plan 04/10/22: Less guarded with me. Does not voice any persecutory beliefs. Exhibits preoccupation and perseveration about a number of decisions (some important, some less so). She voices an interest in continuing treatment and asks me to reassure her that she won't be made to leave when her commitment expires tomorrow. My saying clearly that this would not happen as long as she agreed to continue treatment did little to reassure her. Has been tolerating quetiaine well with strong evidence of benefit so will continue at the curent dose of 25 mg QAM & 50 mg QHS. 04/09/22: slept most of the day and was able to participate in a reasonable conversation about current and future plans. In my opinion she does not at this time exhibit behaviors or thought patterns that would meet criteria for extending the commitment. Will continue trial of low-dose quetiapine. 04/08/22: patient is eating and drinking and remains paranoid about medications, will hold on replete K pending repeat labs in favor of compliance with low dose Seroquel. Refusing additional labs at this time. will need to make a determination about requesting extended commitment tomorrow. 04/07/22: The patient was admitted to the [facility] ([facility] mental health unit) on q15 min checks (behavioral with suicide precautions) for safety. The patient will participate in group, recreational, and milieu therapies and will be offered additional individual and family sessions as clinically appropriate. She is currently refusing all programming. She did eat breakfast then refuse lunch. Risks/benefits/alternatives reviewed re: Seroquel for mood stabilization as she preferred over Zyprexa (though the latter will be available IM if unable to redirect). Will replete K+, UC no growth on day 1 and patient denied dysuria. 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 Chief Complaint "I'm glad I took that Seroquel". Review of Systems Sleep Information Total Hours of Sleep: 6.5 Sleep Comments: Patient was up several times requesting snacks or speaking with staff. Meal Information Percent Meal Consumed - Breakfast: 0 Percent Meal Consumed - Lunch: 100 Percent Meal Consumed - Dinner: 30 Nutrition Comment: pt. allowed to rest; meal dated, labeled and refrigerated Medication Trials Got quetiapine 25 mg yesterday afternoon and 50 mg at bedtime Subjective Subjective Patient was seen & assessed and interval progress reviewed with treatment team nursing and social work Medication Trials Got quetiapine 25 mg yesterday afternoon and 50 mg at bedtime Physical Exam Psychiatric Orientation: alert and cooperative Apperance: appropriately dressed and appropriately groomed Eye Contact: + fair eye contact Motor Behavior: no abnormal motor movements Speech: normal rate/rhythm/volume of speech; no pressured speech Affect: + anxious affect; no labile affect Mood: + anxious mood; no irritable mood Thought Process: + circumstantial thought process, + tangential thought process and + perseveration Thought Content: + preoccupation and + ideas of reference; no delusions Suicidal Thoughts: denies suicidal thoughts Homicidal Thoughts: denies homicidal thoughts Hallucinations: no auditory hallucinations and no visual hallucinations Cognition: attention grossly intact and language grossly intact Estimated Intelligence: consistent with education level Insight: + limited insight Judgement: + limited judgement Vital Signs (Past 24 Hours) Last Vital Signs Temp 37.0 C 04/10/22 19:28 Pulse 96 H 04/09/22 06:34 Resp 16 04/09/22 06:34 BP 113/81 04/09/22 06:34 Pulse Ox 93 04/07/22 06:00 O2 Del Method 04/07/22 06:00 Results & Data ([facility]) Current Inpatient Medications Current Inpatient Medications: Current Inpatient Medications Acetaminophen (Acetaminophen 325 Mg Tab) 650 mg PO Q4H PRN PRN Reason: Headache or Minor Fever Stop: 05/07/22 00:05 Al Hydrox/Mg Hydrox/Simethicone (Aluminum/Magnesium Susp 30 Ml Udc) 30 ml PO Q4H PRN PRN Reason: GI Upset Stop: 05/07/22 00:05 Bismuth Subsalicylate (Bismuth Subsalicylate Liqd 236 Ml) 15 ml PO PRN PRN PRN Reason: Loose Stool Stop: 05/07/22 00:05 Hydroxyzine HCl (Hydroxyzine Hcl 25 Mg Tab) 50 mg PO HSZ PRN PRN Reason: Insomnia Stop: 05/07/22 00:05 Lorazepam (Lorazepam 1 Mg Tab) 1 mg PO Q6 PRN PRN Reason: Anxiety Stop: 05/07/22 01:29 Magnesium Hydroxide (Magnesium Hydroxide Susp 30 Ml Udc) 30 ml PO DAILY PRN PRN Reason: Constipation Stop: 05/07/22 00:05 Olanzapine (Olanzapine 10 Mg/2.1 Ml Sdv) 10 mg IM Q6 PRN PRN Reason: Agitation Stop: 05/07/22 11:59 Quetiapine Fumarate (Quetiapine Fumarate 25 Mg Tablet) 25 mg PO Q4 PRN PRN Reason: Anxiety/Agitation Stop: 05/07/22 11:59 Last Admin: 04/10/22 07:44 Dose: 25 mg Quetiapine Fumarate (Quetiapine Fumarate 25 Mg Tablet) 50 mg PO HS CAROLA Stop: 05/07/22 21:59 Last Admin: 04/09/22 20:00 Dose: 50 mg Sodium Chloride (Sodium Chloride 0.65% Na Soln 45 Ml (Swift)) 1 - 2 sprays NA PRN PRN PRN Reason: Nasal Dryness/Congestion Stop: 05/07/22 00:05 Mental Health & Subst Abuse Tx Psychiatrist Name of Psychiatrist: Charlotte Amador Psychiatrist's Date Of Appointment With Psychiatric Provider: 04/28/22 Time of Appointment with Psychiatrist: 8:30AM Psychiatric Appointment Comment: [address] [place] [address] Therapist Name of Therapist: Janette Gallegos Date of Therapist Appointment: 04/16/21 Time of Therapist Appointment: 3:30 PM Warranty Coordinator Name of Warranty Coordinator: N/A Post Discharge Appointments Primary Care Physician Name Of Family Doctor/PCP: [facility] Primary Care Provider Appointment Comment: [facility] Contact Information Discharge Discharge Address: [address] [place], [place] [id number]
[2022-04-10] MEDS: QUEtiapine FUMARATE 25 MG TABLET PO SCH (21:02)
[2022-04-11] MEDS: QUEtiapine FUMARATE 25 MG TABLET PO SCH ×2 (12:45→21:12)
--- NOTE | 2022-04-11 18:30 | Psychiatric Progress Note ---
Date of Service April 11, 2022 Impression / Recommendations Impression 04/11/22: Appears to staff and me clearly improving in a number of areas, but pt is hesitant to endorse this. She is certainly not as paranoid and is more focused on real-world issues. She is not certain whether she wants to go to [place] with her parents. Voices hesitation about continuing quetiapine despite recognizing improvement she attributes to it. 22 yo female with unspecified psychotic disorder, differential includes substance induced, acute jennifer, or primary thought disorder. Showing gradual but consistent improvement, most likely attributable to use of quetiapine. 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 More interest in treatment. (1) Psychotic disorder: Plan 04/11/22: Continue low-dose quetiapine. 04/10/22: Less guarded with me. Does not voice any persecutory beliefs. Exhibits preoccupation and perseveration about a number of decisions (some important, some less so). She voices an interest in continuing treatment and asks me to reassure her that she won't be made to leave when her commitment expires tomorrow. My saying clearly that this would not happen as long as she agreed to continue treatment did little to reassure her. Has been tolerating quetiaine well with strong evidence of benefit so will continue at the curent dose of 25 m g QAM & 50 mg QHS. 04/09/22: slept most of the day and was able to participate in a reasonable conversation about current and future plans. In my opinion she does not at this time exhibit behaviors or thought patterns that would meet criteria for extending the commitment. Will continue trial of low-dose quetiapine. 04/08/22: patient is eating and drinking and remains paranoid about medications, will hold on replete K pending repeat labs in favor of compliance with low dose Seroquel. Refusing additional labs at this time. will need to make a determination about requesting extended commitment tomorrow. 04/07/22: The patient was admitted to the [facility] ([place] [facility]) on q15 min checks (behavioral with suicide precautions) for safety. The patient will participate in group, recreational, and milieu therapies and will be offered additional individual and family sessions as clinically appropriate. She is currently refusing all programming. She did eat breakfast then refuse lunch. Risks/benefits/alternatives reviewed re: Seroquel for mood stabilization as she preferred over Zyprexa (though the latter will be available IM if unable to redirect). Will replete K+, UC no growth on day 1 and patient denied dysuria. 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 Chief Complaint "I slept some better". Review of Systems Sleep Information Total Hours of Sleep: 7.25 Sleep Comments: Patient was up several times requesting snacks or speaking with staff. Meal Information Percent Meal Consumed - Breakfast: 100 Percent Meal Consumed - Lunch: 50 Percent Meal Consumed - Dinner: 30 Nutrition Comment: pt. allowed to rest; meal dated, labeled and refrigerated Medication Trials Got quetiapine 25 mg yesterday afternoon and 50 mg at bedtime Subjective Subjective Patient was seen & assessed and interval progress reviewed with treatment team nursing and social work Medication Trials Got quetiapine 25 mg yesterday afternoon and 50 mg at bedtime Physical Exam Psychiatric Orientation: alert, cooperative and + guarded Apperance: appropriately dressed and appropriately groomed Eye Contact: + fair eye contact Motor Behavior: no abnormal motor movements Speech: normal rate/rhythm/volume of speech; no pressured speech Affect: + anxious affect; no labile affect and no irritable affect Mood: + anxious mood; no irritable mood Thought Process: + tangential thought process; thought process not circumstantial Thought Content: + preoccupation and + cognitive distortions; not paranoid, no delusions and no ideas of reference Suicidal Thoughts: denies suicidal thoughts Homicidal Thoughts: denies homicidal thoughts Hallucinations: no auditory hallucinations and no visual hallucinations Cognition: attention grossly intact and language grossly intact Estimated Intelligence: consistent with education level Insight: + limited insight Judgement: + limited judgement Vital Signs (Past 24 Hours) Last Vital Signs Temp 37.0 C 04/10/22 19:28 Pulse 94 H 04/11/22 06:35 Resp 16 04/11/22 06:35 BP 121/78 04/11/22 06:35 Pulse Ox 93 04/07/22 06:00 O2 Del Method 04/07/22 06:00 Results & Data ([facility]) Current Inpatient Medications Current Inpatient Medications: Current Inpatient Medications Acetaminophen (Acetaminophen 325 Mg Tab) 650 mg PO Q4H PRN PRN Reason: Headache or Minor Fever Stop: 05/07/22 00:05 Al Hydrox/Mg Hydrox/Simethicone (Aluminum/Magnesium Susp 30 Ml Udc) 30 ml PO Q4H PRN PRN Reason: GI Upset Stop: 05/07/22 00:05 Bismuth Subsalicylate (Bismuth Subsalicylate Liqd 236 Ml) 15 ml PO PRN PRN PRN Reason: Loose Stool Stop: 05/07/22 00:05 Hydroxyzine HCl (Hydroxyzine Hcl 25 Mg Tab) 50 mg PO HSZ PRN PRN Reason: Insomnia Stop: 05/07/22 00:05 Lorazepam (Lorazepam 1 Mg Tab) 1 mg PO Q6 PRN PRN Reason: Anxiety Stop: 05/07/22 01:29 Magnesium Hydroxide (Magnesium Hydroxide Susp 30 Ml Udc) 30 ml PO DAILY PRN PRN Reason: Constipation Stop: 05/07/22 00:05 Last Admin: 04/11/22 15:05 Dose: 30 ml Olanzapine (Olanzapine 10 Mg/2.1 Ml Sdv) 10 mg IM Q6 PRN PRN Reason: Agitation Stop: 05/07/22 11:59 Quetiapine Fumarate (Quetiapine Fumarate 25 Mg Tablet) 25 mg PO Q4 PRN PRN Reason: Anxiety/Agitation Stop: 05/07/22 11:59 Last Admin: 04/10/22 07:44 Dose: 25 mg Quetiapine Fumarate (Quetiapine Fumarate 25 Mg Tablet) 50 mg PO HS CAROLA Stop: 05/07/22 21:59 Last Admin: 04/10/22 21:02 Dose: 50 mg Quetiapine Fumarate (Quetiapine Fumarate 25 Mg Tablet) 25 mg PO DAILY CAROLA Stop: 05/11/22 12:29 Last Admin: 04/11/22 12:45 Dose: 25 mg Sodium Chloride (Sodium Chloride 0.65% Na Soln 45 Ml ([place])) 1 - 2 sprays NA PRN PRN PRN Reason: Nasal Dryness/Congestion Stop: 05/07/22 00:05 Mental Health & Subst Abuse Tx Psychiatrist Name of Psychiatrist: Charlotte Amador Psychiatrist's Date Of Appointment With Psychiatric Provider: 04/28/22 Time of Appointment with Psychiatrist: 8:30AM Psychiatric Appointment Comment: [facility] [address] [place] [address] Therapist Name of Therapist: Janette Gallegos Date of Therapist Appointment: 04/16/21 Time of Therapist Appointment: 3:30 PM Stationary Engineer Refrigeration Name of Stationary Engineer Refrigeration: N/A Post Discharge Appointments Primary Care Physician Name Of Family Doctor/PCP: [facility] Primary Care Provider Appointment Comment: [facility] [place] [facility] [place] Contact Information Discharge Discharge Address: [address] [place] [address]
[2022-04-12] MEDS: QUEtiapine FUMARATE 25 MG TABLET PO SCH ×2 (09:00→20:55)
--- NOTE | 2022-04-12 11:21 | Psychiatric Progress Note ---
Date of Service April 12, 2022 Impression / Recommendations Impression 04/11/22: Appears to staff and me clearly improving in a number of areas, but pt is hesitant to endorse this. She is certainly not as paranoid and is more focused on real-world issues. She is not certain whether she wants to go to [place] with her parents. Voices hesitation about continuing quetiapine despite recognizing improvement she attributes to it. 22 yo female with unspecified psychotic disorder, differential includes substance induced, acute jennifer, or primary thought disorder. Showing gradual but consistent improvement, most likely attributable to use of quetiapine. 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 More interest in treatment. (1) Psychotic disorder: Plan 04/11/22: Continue low-dose quetiapine. 04/10/22: Less guarded with me. Does not voice any persecutory beliefs. Exhibits preoccupation and perseveration about a number of decisions (some important, some less so). She voices an interest in continuing treatment and asks me to reassure her that she won't be made to leave when her commitment expires tomorrow. My saying clearly that this would not happen as long as she agreed to continue treatment did little to reassure her. Has been tolerating quetiaine well with strong evidence of benefit so will continue at the curent dose of 25 m g QAM & 50 mg QHS. 04/09/22: slept most of the day and was able to participate in a reasonable conversation about current and future plans. In my opinion she does not at this time exhibit behaviors or thought patterns that would meet criteria for extending the commitment. Will continue trial of low-dose quetiapine. 04/08/22: patient is eating and drinking and remains paranoid about medications, will hold on replete K pending repeat labs in favor of compliance with low dose Seroquel. Refusing additional labs at this time. will need to make a determination about requesting extended commitment tomorrow. 04/07/22: The patient was admitted to the [facility] ([facility] mental health unit) on q15 min checks (behavioral with suicide precautions) for safety. The patient will participate in group, recreational, and milieu therapies and will be offered additional individual and family sessions as clinically appropriate. She is currently refusing all programming. She did eat breakfast then refuse lunch. Risks/benefits/alternatives reviewed re: Seroquel for mood stabilization as she preferred over Zyprexa (though the latter will be available IM if unable to redirect). Will replete K+, UC no growth on day 1 and patient denied dysuria. 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 Chief Complaint "[]". Review of Systems Sleep Information Total Hours of Sleep: 8 Sleep Comments: Patient was up several times requesting snacks or speaking with staff. Meal Information Percent Meal Consumed - Breakfast: 50 Percent Meal Consumed - Lunch: 50 Percent Meal Consumed - Dinner: 50 Nutrition Comment: pt. allowed to rest; meal dated, labeled and refrigerated Medication Trials Got quetiapine 25 mg yesterday afternoon and 50 mg at bedtime Subjective Subjective Patient was seen & assessed and interval progress reviewed with [treatment team] [nursing and social work] Medication Trials Got quetiapine 25 mg yesterday afternoon and 50 mg at bedtime Physical Exam Psychiatric Orientation: alert, cooperative and + guarded Apperance: appropriately dressed and appropriately groomed Eye Contact: + fair eye contact Motor Behavior: no abnormal motor movements Speech: normal rate/rhythm/volume of speech; no pressured speech Affect: + anxious affect; no labile affect and no irritable affect Mood: + anxious mood; no irritable mood Thought Process: + tangential thought process and + perseveration; thought process not circumstantial Thought Content: + preoccupation and + cognitive distortions; not paranoid, no delusions and no ideas of reference Suicidal Thoughts: denies suicidal thoughts Homicidal Thoughts: denies homicidal thoughts Hallucinations: no auditory hallucinations and no visual hallucinations Cognition: attention grossly intact and language grossly intact Estimated Intelligence: consistent with education level Insight: + limited insight and + impaired insight Judgement: + limited judgement and + impaired judgement Vital Signs (Past 24 Hours) Last Vital Signs Temp 36.3 C L 04/11/22 19:13 Pulse 88 04/12/22 06:33 Resp 16 04/12/22 06:32 BP 86/54 L 04/12/22 06:33 Pulse Ox 93 04/07/22 06:00 O2 Del Method 04/07/22 06:00 Results & Data ([facility]) Current Inpatient Medications Current Inpatient Medications: Current Inpatient Medications Acetaminophen (Acetaminophen 325 Mg Tab) 650 mg PO Q4H PRN PRN Reason: Headache or Minor Fever Stop: 05/07/22 00:05 Al Hydrox/Mg Hydrox/Simethicone (Aluminum/Magnesium Susp 30 Ml Udc) 30 ml PO Q4H PRN PRN Reason: GI Upset Stop: 05/07/22 00:05 Bismuth Subsalicylate (Bismuth Subsalicylate Liqd 236 Ml) 15 ml PO PRN PRN PRN Reason: Loose Stool Stop: 05/07/22 00:05 Hydroxyzine HCl (Hydroxyzine Hcl 25 Mg Tab) 50 mg PO HSZ PRN PRN Reason: Insomnia Stop: 05/07/22 00:05 Lorazepam (Lorazepam 1 Mg Tab) 1 mg PO Q6 PRN PRN Reason: Anxiety Stop: 05/07/22 01:29 Magnesium Hydroxide (Magnesium Hydroxide Susp 30 Ml Udc) 30 ml PO DAILY PRN PRN Reason: Constipation Stop: 05/07/22 00:05 Last Admin: 04/11/22 15:05 Dose: 30 ml Olanzapine (Olanzapine 10 Mg/2.1 Ml Sdv) 10 mg IM Q6 PRN PRN Reason: Agitation Stop: 05/07/22 11:59 Quetiapine Fumarate (Quetiapine Fumarate 25 Mg Tablet) 25 mg PO Q4 PRN PRN Reason: Anxiety/Agitation Stop: 05/07/22 11:59 Last Admin: 04/10/22 07:44 Dose: 25 mg Quetiapine Fumarate (Quetiapine Fumarate 25 Mg Tablet) 50 mg PO HS CAROLA Stop: 05/07/22 21:59 Last Admin: 04/11/22 21:12 Dose: 50 mg Quetiapine Fumarate (Quetiapine Fumarate 25 Mg Tablet) 25 mg PO DAILY CAROLA Stop: 05/11/22 12:29 Last Admin: 04/12/22 09:00 Dose: 25 mg Sodium Chloride (Sodium Chloride 0.65% Na Soln 45 Ml ([place])) 1 - 2 sprays NA PRN PRN PRN Reason: Nasal Dryness/Congestion Stop: 05/07/22 00:05 Mental Health & Subst Abuse Tx Psychiatrist Name of Psychiatrist: Charlotte Amador Psychiatrist's Date Of Appointment With Psychiatric Provider: 04/28/22 Time of Appointment with Psychiatrist: 8:30AM Psychiatric Appointment Comment: [address] [place] [address] Therapist Name of Therapist: Janette Gallegos Date of Therapist Appointment: 04/16/21 Time of Therapist Appointment: 3:30 PM Furniture Finisher Helper Name of Furniture Finisher Helper: N/A Post Discharge Appointments Primary Care Physician Name Of Family Doctor/PCP: [facility] Primary Care Provider Appointment Comment: [facility] Contact Information Discharge Discharge Address: [address] [place] [address]
--- NOTE | 2022-04-12 18:56 | Psychiatric Progress Note ---
Date of Service April 12, 2022 Impression / Recommendations Impression 04/12/22: Expresses more anxiety as discharge is discussed more. Appears ambivalent about plans. Repeatedly tries to engage in debate about her diagnosis and the use of the term "psychosis" (although she readily endorses "paranoia"). Does not attribute any problems to quetiapine. 04/11/22: Appears to staff and me clearly improving in a number of areas, but pt is hesitant to endorse this. She is certainly not as paranoid and is more focused on real-world issues. She is not certain whether she wants to go to [place] with her parents. Voices hesitation about continuing quetiapine despite recognizing improvement she attributes to it. 22 yo female with unspecified psychotic disorder, differential includes substance induced, acute jennifer, or primary thought disorder. Showing gradual but consistent improvement, most likely attributable to use of quetiapine. 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 More interest in treatment. (1) Psychotic disorder: Plan 04/12/22: Encourage communication with family in order to form plans for discharge. Continue quetiapine. 04/11/22: Continue low-dose quetiapine. 04/10/22: Less guarded with me. Does not voice any persecutory beliefs. Exhibits preoccupation and perseveration about a number of decisions (some important, some less so). She voices an interest in continuing treatment and asks me to reassure her that she won't be made to leave when her commitment expires tomorrow. My saying clearly that this would not happen as long as she agreed to continue treatment did little to reassure her. Has been tolerating quetiaine well with strong evidence of benefit so will continue at the current dose of 25 mg QAM & 50 mg QHS. 04/09/22: slept most of the day and was able to participate in a reasonable conversation about current and future plans. In my opinion she does not at this time exhibit behaviors or thought patterns that would meet criteria for extending the commitment. Will continue trial of low-dose quetiapine. 04/08/22: patient is eating and drinking and remains paranoid about medications, will hold on replete K pending repeat labs in favor of compliance with low dose Seroquel. Refusing additional labs at this time. will need to make a determination about requesting extended commitment tomorrow. 04/07/22: The patient was admitted to the [facility] ([facility] health unit) on q15 min checks (behavioral with suicide precautions) for safety. The patient will participate in group, recreational, and milieu therapies and will be offered additional individual and family sessions as clinically appropriate. She is currently refusing all programming. She did eat breakfast then refuse hong ch. Risks/benefits/alternatives reviewed re: Seroquel for mood stabilization as she preferred over Zyprexa (though the latter will be available IM if unable to redirect). Will replete K+, UC no growth on day 1 and patient denied dysuria. 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 Chief Complaint "I have so much to do". Review of Systems Sleep Information Total Hours of Sleep: 8 Sleep Comments: Patient was up several times requesting snacks or speaking with staff. Meal Information Percent Meal Consumed - Breakfast: 50 Percent Meal Consumed - Lunch: 50 Percent Meal Consumed - Dinner: 50 Nutrition Comment: pt. allowed to rest; meal dated, labeled and refrigerated Medication Trials Got quetiapine 25 mg yesterday afternoon and 50 mg at bedtime Subjective Subjective Patient was seen & assessed and interval progress reviewed with treatment team nursing and social work Medication Trials Got quetiapine 25 mg yesterday afternoon and 50 mg at bedtime Physical Exam Psychiatric Orientation: alert, cooperative and + guarded Apperance: appropriately dressed and appropriately groomed Eye Contact: + fair eye contact Motor Behavior: no abnormal motor movements Speech: normal rate/rhythm/volume of speech; no pressured speech Affect: + anxious affect; no labile affect and no irritable affect Mood: + anxious mood; no irritable mood Thought Process: + tangential thought process and + perseveration; thought process not circumstantial Thought Content: + preoccupation and + cognitive distortions; not paranoid, no delusions and no ideas of reference Suicidal Thoughts: denies suicidal thoughts Homicidal Thoughts: denies homicidal thoughts Hallucinations: no auditory hallucinations and no visual hallucinations Cognition: attention grossly intact and language grossly intact Estimated Intelligence: consistent with education level Insight: + limited insight and + impaired insight Judgement: + limited judgement and + impaired judgement Vital Signs (Past 24 Hours) Last Vital Signs Temp 36.3 C L 04/11/22 19:13 Pulse 88 04/12/22 06:33 Resp 16 04/12/22 06:32 BP 86/54 L 04/12/22 06:33 Pulse Ox 93 04/07/22 06:00 O2 Del Method 04/07/22 06:00 Results & Data ([facility]) Current Inpatient Medications Current Inpatient Medications: Current Inpatient Medications Acetaminophen (Acetaminophen 325 Mg Tab) 650 mg PO Q4H PRN PRN Reason: Headache or Minor Fever Stop: 05/07/22 00:05 Al Hydrox/Mg Hydrox/Simethicone (Aluminum/Magnesium Susp 30 Ml Udc) 30 ml PO Q4H PRN PRN Reason: GI Upset Stop: 05/07/22 00:05 Bismuth Subsalicylate (Bismuth Subsalicylate Liqd 236 Ml) 15 ml PO PRN PRN PRN Reason: Loose Stool Stop: 05/07/22 00:05 Hydroxyzine HCl (Hydroxyzine Hcl 25 Mg Tab) 50 mg PO HSZ PRN PRN Reason: Insomnia Stop: 05/07/22 00:05 Lorazepam (Lorazepam 1 Mg Tab) 1 mg PO Q6 PRN PRN Reason: Anxiety Stop: 05/07/22 01:29 Magnesium Hydroxide (Magnesium Hydroxide Susp 30 Ml Udc) 30 ml PO DAILY PRN PRN Reason: Constipation Stop: 05/07/22 00:05 Last Admin: 04/11/22 15:05 Dose: 30 ml Olanzapine (Olanzapine 10 Mg/2.1 Ml Sdv) 10 mg IM Q6 PRN PRN Reason: Agitation Stop: 05/07/22 11:59 Quetiapine Fumarate (Quetiapine Fumarate 25 Mg Tablet) 25 mg PO Q4 PRN PRN Reason: Anxiety/Agitation Stop: 02/22/23 11:59 Last Admin: 04/10/22 07:44 Dose: 25 mg Quetiapine Fumarate (Quetiapine Fumarate 25 Mg Tablet) 50 mg PO HS CAROLA Stop: 05/07/22 21:59 Last Admin: 04/11/22 21:12 Dose: 50 mg Quetiapine Fumarate (Quetiapine Fumarate 25 Mg Tablet) 25 mg PO DAILY CAROL[place] Stop: 05/11/22 12:29 Last Admin: 04/12/22 09:00 Dose: 25 mg Sodium Chloride (Sodium Chloride 0.65% Na Soln 45 Ml ([place])) 1 - 2 sprays NA PRN PRN PRN Reason: Nasal Dryness/Congestion Stop: 05/07/22 00:05 Mental Health & Subst Abuse Tx Psychiatrist Name of Psychiatrist: Charlotte Amador Psychiatrist's Date Of Appointment With Psychiatric Provider: 04/28/22 Time of Appointment with Psychiatrist: 8:30AM Psychiatric Appointment Comment: [address] [place] [address] Therapist Name of Therapist: Janette Gallegos Date of Therapist Appointment: 04/16/21 Time of Therapist Appointment: 3:30 PM Caddie Supervisor Name of Caddie Supervisor: N/A Post Discharge Appointments Primary Care Physician Name Of Family Doctor/PCP: [facility] Primary Care Provider Appointment Comment: [facility] Contact Information Discharge Discharge Address: [address] [place] [id number]
[2022-04-13] MEDS: QUEtiapine FUMARATE 25 MG TABLET PO SCH ×2 (09:12→21:00)
--- NOTE | 2022-04-13 12:18 | Psychiatric Progress Note ---
Date of Service April 13, 2022 Impression / Recommendations Impression 04/13/22: Better-focused today. In family meeting was able to formulate a reasonable plan for anticipated discharge. Slept "OK". Has continued to tolerate low-dose quetiapine with no reported adverse effects. 04/12/22: Expresses more anxiety as discharge is discussed more. Appears ambivalent about plans. Repeatedly tries to engage in debate about her diagnosis and the use of the term "psychosis" (although she readily endorses "paranoia"). Does not attribute any problems to quetiapine. 04/11/22: Appears to staff and me clearly improving in a number of areas, but pt is hesitant to endorse this. She is certainly not as paranoid and is more focused on real-world issues. She is not certain whether she wants to go to [place] her [place]. Voices hesitation about continuing quetiapine despite recogn izing improvement she attributes to it. 22 yo female with unspecified psychotic disorder, differential includes substance induced, acute jennifer, or primary thought disorder. Showing gradual but consistent improvement, most likely attributable to use of quetiapine. 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 More interest in treatment. 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 Chief Complaint "The family meeting went well". Review of Systems Sleep Information Total Hours of Sleep: 4.5 Sleep Comments: Patient was up several times requesting snacks or speaking with staff. Meal Information Percent Meal Consumed - Breakfast: 100 Percent Meal Consumed - Lunch: 0 Percent Meal Consumed - Dinner: 80 Nutrition Comment: pt. allowed to rest; meal dated, labeled and refrigerated Subjective Subjective Patient was seen & assessed and interval progress reviewed with treatment team nursing and social work Physical Exam Psychiatric Orientation: alert, cooperative and + guarded Apperance: appropriately dressed and appropriately groomed Eye Contact: + fair eye contact Motor Behavior: no abnormal motor movements Speech: normal rate/rhythm/volume of speech; no pressured speech Affect: + anxious affect; no labile affect and no irritable affect Mood: + anxious mood; no irritable mood Thought Process: + tangential thought process and + perseveration; thought process not circumstantial Thought Content: + preoccupation and + cognitive distortions; not paranoid, no delusions and no ideas of reference Suicidal Thoughts: denies suicidal thoughts Homicidal Thoughts: denies homicidal thoughts Hallucinations: no auditory hallucinations and no visual hallucinations Cognition: attention grossly intact and language grossly intact Estimated Intelligence: consistent with education level Insight: + limited insight and + impaired insight Judgement: + limited judgement and + impaired judgement Vital Signs (Past 24 Hours) Last Vital Signs Temp 36.5 C 04/12/22 20:00 Pulse 102 H 04/13/22 06:36 Resp 16 04/13/22 06:36 BP 102/57 L 04/13/22 06:36 Pulse Ox 93 04/07/22 06:00 O2 Del Method 04/07/22 06:00 Results & Data ([facility]) Current Inpatient Medications Current Inpatient Medications: Current Inpatient Medications Acetaminophen (Acetaminophen 325 Mg Tab) 650 mg PO Q4H PRN PRN Reason: Headache or Minor Fever Stop: 05/07/22 00:05 Al Hydrox/Mg Hydrox/Simethicone (Aluminum/Magnesium Susp 30 Ml Udc) 30 ml PO Q4H PRN PRN Reason: GI Upset Stop: 05/07/22 00:05 Bismuth Subsalicylate (Bismuth Subsalicylate Liqd 236 Ml) 15 ml PO PRN PRN PRN Reason: Loose Stool Stop: 05/07/22 00:05 Hydroxyzine HCl (Hydroxyzine Hcl 25 Mg Tab) 50 mg PO HSZ PRN PRN Reason: Insomnia Stop: 05/07/22 00:05 Lorazepam (Lorazepam 1 Mg Tab) 1 mg PO Q6 PRN PRN Reason: Anxiety Stop: 05/07/22 01:29 Magnesium Hydroxide (Magnesium Hydroxide Susp 30 Ml Udc) 30 ml PO DAILY PRN PRN Reason: Constipation Stop: 05/07/22 00:05 Last Admin: 04/11/22 15:05 Dose: 30 ml Olanzapine (Olanzapine 10 Mg/2.1 Ml Sdv) 10 mg IM Q6 PRN PRN Reason: Agitation Stop: 05/07/22 11:59 Quetiapine Fumarate (Quetiapine Fumarate 25 Mg Tablet) 25 mg PO Q4 PRN PRN Reason: Anxiety/Agitation Stop: 05/07/22 11:59 Last Admin: 04/10/22 07:44 Dose: 25 mg Quetiapine Fumarate (Quetiapine Fumarate 25 Mg Tablet) 50 mg PO HS CAROLA Stop: 05/07/22 21:59 Last Admin: 04/12/22 20:55 Dose: 50 mg Quetiapine Fumarate (Quetiapine Fumarate 25 Mg Tablet) 25 mg PO DAILY [place] Stop: 05/11/22 12:29 Last Admin: 04/13/22 09:12 Dose: 25 mg Sodium Chloride (Sodium Chloride 0.65% Na Soln 45 Ml ([place])) 1 - 2 sprays NA PRN PRN PRN Reason: Nasal Dryness/Congestion Stop: 05/07/22 00:05 Mental Health & Subst Abuse Tx Psychiatrist Name of Psychiatrist: [facility] Psychiatrist's Date Of Appointment With Psychiatric Provider: 04/16/22 Time of Appointment with Psychiatrist: Parents will confirm appointment date/time. Psychiatric Appointment Comment: [address], [facility] [address], [place] [address] Therapist Name of Therapist: Janette Gallegos Date of Therapist Appointment: 04/16/21 Time of Therapist Appointment: 3:30 PM Stationary Engineer Refrigeration Name of Stationary Engineer Refrigeration: N/A Post Discharge Appointments Primary Care Physician Name Of Family Doctor/PCP: [facility] Primary Care Provider Appointment Comment: [facility] Contact Information Discharge Discharge Address: [address] [place] [address]
--- NOTE | 2022-04-14 07:47 | Discharge Summary ---
Date of Service April 14, 2022 History of Present Illness 22 yo female with unspecified psychotic disorder, differential includes substance induced, acute jennifer, or primary thought disorder. Father reportedly had an isolated episode of psychosis in his 20s. Given sleep pattern, presentation, rapid onset, baseline functioning without negative prodrome, no known recent substance abuse (though tox + MJ) suspect bipolar I disorder. (1) Psychotic disorder: Physical Exam Psychiatric Orientation: alert, cooperative and + guarded Apperance: appropriately dressed and appropriately groomed Eye Contact: + fair eye contact Motor Behavior: no abnormal motor movements Speech: normal rate/rhythm/volume of speech; no pressured speech Affect: + anxious affect; no labile affect and no irritable affect Mood: + anxious mood; no irritable mood Thought Process: + tangential thought process and + perseveration; thought process not circumstantial Thought Content: + preoccupation and + cognitive distortions; not paranoid, no delusions and no ideas of reference Suicidal Thoughts: denies suicidal thoughts Homicidal Thoughts: denies homicidal thoughts Hallucinations: no auditory hallucinations and no visual hallucinations Cognition: attention grossly intact and language grossly intact Estimated Intelligence: consistent with education level Insight: + limited insight and + impaired insight Judgement: + limited judgement and + impaired judgement Vital Signs (Past 24 Hours) Last Vital Signs Temp 36.9 C 04/13/22 20:00 Pulse 82 04/14/22 06:34 Resp 16 04/14/22 06:34 BP 102/61 04/14/22 06:34 Pulse Ox 93 04/07/22 06:00 O2 Del Method 04/07/22 06:00 Principal Diagnosis Psychotic Episodes Psychiatric Data See daily stay summary. In short, safety was maintained and the patient was cooperative with care. Medication changes included discontinuation of escitalopram addition of low-dose quetiapine and they tolerated this well. A family session was by phone the day prior to discharge and safety plan was completed prior to discharge. Day of Discharge Assessment Today the patient voices readiness for discharge. They note improvement in mood and deny thoughts to harm self or others. Thoughts remain organized and they are improved from admission. There is no evidence of psychosis. They agree to take mediations as prescribed and keep follow-up appointments. They are stable for discharge to outpatient level of care. 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 Risk Factors Assessment Male: No : Yes Do You Have Access To A Gun?: No Previous Attempt: Yes Previous Psychiatric Hospitalization: No Protective Factors Assessment Employed: No Supportive Family: Yes Discharge Data Lab Results 04/06/22 04/06/22 04/06/22 19:00 19:00 19:00 WBC 5.75 RBC 4.72 Hgb 14.8 Hct 41.9 MCV 88.8 MCH 31.4 MCHC 35.3 RDW Std Deviation 38.5 RDW Coeff of Apollo 11.9 Plt Count 302 MPV 9.3 L Immature Gran % (Auto) 0.2 Neut % (Auto) 53.0 Lymph % (Auto) 36.2 Carroll % (Auto) 9.2 Eos % (Auto) 0.7 Baso % (Auto) 0.7 Neut # (Auto) 3.05 Lymph # (Auto) 2.08 Carroll # (Auto) 0.53 Eos # (Auto) 0.04 Baso # (Auto) 0.04 Immature Gran # (Auto) 0.01 Sodium 139 Potassium 3.1 L Chloride 101 Carbon Dioxide 26 Anion Gap 12 H BUN 16 Creatinine 0.82 Est Cr Clr Drug Dosing Not Reportable Est GFR ( Amer) 116.1 Est GFR (Non-Af Amer) 100.2 BUN/Creatinine Ratio 19.5 Glucose 89 Calcium 10.6 H Total Bilirubin 1.5 H AST 48 H ALT 24 Alkaline Phosphatase 53 Total Protein 8.8 H Albumin 5.6 H Globulin 3.2 Albumin/Globulin Ratio 1.8 TSH 0.503 Urine Color Urine Appearance Urine pH Ur Specific Ames Urine Protein Urine Glucose (UA) Urine Ketones Urine Blood Urine Nitrite Urine Bilirubin Urine Urobilinogen Ur Leukocyte Esterase Urine WBC (Auto) Urine RBC (Auto) U Hyaline Cast (Auto) U Epithel Cells (Auto) Urine Bacteria (Auto) Urine Crystals Calcium Oxalate Crystal Urine Test Urine Opiates Screen Ur Methadone, Qual Urine Barbiturates Ur Phencyclidine (PCP) U Amphetamin/Meth Scrn MDMA (Ecstasy) Screen U Benzodiazepines Scrn Ur Cocaine Metabolite U Marijuana (THC) Screen U Marijuana THC Carboxy Drug Screen Comment Ethyl Alcohol mg/dL SARS-CoV-2, RNA, NAAT 01/04/06/22 04/06/22 19:00 19:00 19:00 WBC RBC Hgb Hct MCV MCH MCHC RDW Std Deviation RDW Coeff of Apollo Plt Count MPV Immature Gran % (Auto) Neut % (Auto) Lymph % (Auto) Carroll % (Auto) Eos % (Auto) Baso % (Auto) Neut # (Auto) Lymph # (Auto) Carroll # (Auto) Eos # (Auto) Baso # (Auto) Immature Gran # (Auto) Sodium Potassium Chloride Carbon Dioxide Anion Gap BUN Creatinine Est Cr Clr Drug Dosing Est GFR ( Amer) Est GFR (Non-Af Amer) BUN/Creatinine Ratio Glucose Calcium Total Bilirubin AST ALT Alkaline Phosphatase Total Protein Albumin Globulin Albumin/Globulin Ratio TSH Urine Color Dark Yellow Urine Appearance Cloudy A Urine pH 6.0 Ur Specific Ames 1.038 H Urine Protein 1+ H Urine Glucose (UA) Negative Urine Ketones 2+ H Urine Blood Negative Urine Nitrite Negative Urine Bilirubin Negative Urine Urobilinogen Negative Ur Leukocyte Esterase Negative Urine WBC (Auto) 5-10 H Urine RBC (Auto) 0-4 U Hyaline Cast (Auto) 10-30 H U Epithel Cells (Auto) >30 H Urine Bacteria (Auto) 2+ H Urine Crystals Not Reportable Calcium Oxalate Crystal Present A Urine Test Negative Urine Opiates Screen Ur Methadone, Qual Urine Barbiturates Ur Phencyclidine (PCP) U Amphetamin/Meth Scrn MDMA (Ecstasy) Screen U Benzodiazepines Scrn Ur Cocaine Metabolite U Marijuana (THC) Screen U Marijuana THC Carboxy Drug Screen Comment Ethyl Alcohol mg/dL < 10.0 SARS-CoV-2, RNA, NAAT 04/06/22 04/06/22 04/06/22 19:19 Unknown Unknown WBC RBC Hgb Hct MCV MCH MCHC RDW Std Deviation RDW Coeff of Apollo Plt Count MPV Immature Gran % (Auto) Neut % (Auto) Lymph % (Auto) Carroll % (Auto) Eos % (Auto) Baso % (Auto) Neut # (Auto) Lymph # (Auto) Carroll # (Auto) Eos # (Auto) Baso # (Auto) Immature Gran # (Auto) Sodium Potassium Chloride Carbon Dioxide Anion Gap BUN Creatinine Est Cr Clr Drug Dosing Est GFR ( Amer) Est GFR (Non-Af Amer) BUN/Creatinine Ratio Glucose Calcium Total Bilirubin AST ALT Alkaline Phosphatase Total Protein Albumin Globulin Albumin/Globulin Ratio TSH Urine Color Urine Appearance Urine pH Ur Specific Ames Urine Protein Urine Glucose (UA) Urine Ketones Urine Blood Urine Nitrite Urine Bilirubin Urine Urobilinogen Ur Leukocyte Esterase Urine WBC (Auto) Urine RBC (Auto) U Hyaline Cast (Auto) U Epithel Cells (Auto) Urine Bacteria (Auto) Urine Crystals Calcium Oxalate Crystal Urine Test Urine Opiates Screen Neg Ur Methadone, Qual Neg Urine Barbiturates Neg Ur Phencyclidine (PCP) Neg U Amphetamin/Meth Scrn Neg MDMA (Ecstasy) Screen Neg U Benzodiazepines Scrn Neg Ur Cocaine Metabolite Neg U Marijuana (THC) Screen Pos H U Marijuana THC Carboxy 85 H Drug Screen Comment SEE NOTE Ethyl Alcohol mg/dL SARS-CoV-2, RNA, NAAT NEGATIVE Mental Health & Subst Abuse Tx Psychiatrist Name of Psychiatrist: [facility] Date Of Appointment With Psychiatric Provider: 04/16/22 Time of Appointment with Psychiatrist: Parents will confirm appointment date/time. Psychiatric Appointment Comment: [address] [place] [address], [facility], [place] [address] Therapist Name of Therapist: Janette Gallegos Date of Therapist Appointment: 04/16/21 Time of Therapist Appointment: 3:30 PM Body Shop Worker Name of Body Shop Worker: N/A Post Discharge Appointments Primary Care Physician Name Of Family Doctor/PCP: [facility] Primary Care Provider Appointment Comment: [facility] Contact Information Discharge Discharge Address: [address] [place] [address] Discharge Plan Discharge Items Patient Disposition: Home - Self-Care Reason For Visit: PSYCHOSIS Discharge Diagnosis: Psychotic Episode Condition on Discharge: Good Activity: Resume your previous activity Driving/Machine Use: No limitations Non-emergency contact: Primary Care Provider and Psychiatrist Call non-emergency contact if: you have any medication questions and your symptoms worsen Follow-up/Referrals: PCP,NO [Primary Care Provider] - Diet: Regular Addtl Attending Provider Instructions: SPECIAL CARE INSTRUCTIONS: 1. Follow through with your scheduled aftercare appointments. If unable to keep an appointment, please call to reschedule. 2. Take your medication only as prescribed. Medication should not be changed or stopped without the approval of your doctor. In the event of worsening symptoms or concerns about side effects, contact your doctor immediately. 3. Utilize new healthy coping skills, anger management skills, and stress management skills learned during your hospitalization. Journal feelings and process them with a support person. Identify stressors or situations that may result in relapse, deterioration or inappropriate behaviors and develop a plan to deal with those issues. 4. If your coping skills are ineffective and you are in crisis, contact your outpatient providers for direction. If unable to reach your providers, please call the [facility] CRISIS LINE AT , go to the [facility] walk-in center at [address], [address], [place], or go to the closest Emergency Room. 5. Avoid alcohol and un-prescribed drugs. 6. You have been provided with the Mental Health Advance Directives Pamphlet for your review. 7. Your condition is stable for discharge to outpatient level of care, but recovery is an ongoing process. Ifthoughts to harm yourself or others return, follow the safety plan developed during your stay. Planning for a safe return home includes securing weapons. Our treatment team recommends weaponsbe removed from the home until your outpatient provider reassesses your progress. In rare cases where the items themselvescannot be removed, guns and ammunitionshould be secured separatelyand keys stored by a reliable personoutside of the home. If you were admitted on an involuntary commitment, the police or other legal authorities may be involved in this process. AFTERCARE APPOINTMENTS: * Please call your insurance company prior to your scheduled appointment to confirm your aftercare providers are covered. Take your insurance information to your appointments. WHO TO CALL AND WHEN: Medical Emergencies: For questions or emergencies related to your hospital stay, please contact the Inpatient Behavioral Health Unit at [phone]. A geospatial systems integrator is on-call 06/10 for the Behavioral Health Unit for emergencies At any time you feel your situation is an emergency, you may also call 911 immediately. Pending Studies at Discharge: No Stand-Alone Forms: [facility], Smoking Cessation Medications and DC Order Prescriptions: New quetiapine 25 mg Tablet 25 mg PO DAILY 30 Days Qty: 30 0RF quetiapine 25 mg Tablet 50 mg PO HS 30 Days Qty: 60 0RF Discontinued escitalopram oxalate 10 mg tablet 10 mg PO DAILY Discharge Orders: Discharge Order (Routine); Ordered 04/14/22 Ordered By: Wilian Yarbrough Admission Data Admit Date/Time: 04/07/22 00:50 Attending Provider: Wilian Yarbrough Admit Provider: Marguerite Yun Primary Care Provider: PCP,WALT Coding Level of Care Code 12607 D/C day mgmt > 30 min
[2022-04-14] MEDS: QUEtiapine FUMARATE 25 MG TABLET PO SCH (08:42)
== END 2022-04-14 14:32 | disposition home or self-care (01) | DRG 885 ==
LOC: ED 17:58 → SUATTDRO 04-07 00:50 → 3S 04-07 00:50